=== PATIENT | female | born 2000 | race Caucasian/White ===

== ENCOUNTER 2019-05-14 07:19 | Emergency (ER) | payer OTHER ==
[~2019-05-14] VITALS: Ht 157.5 cm; Wt 71.6 kg
[2019-05-14 07:22] VITALS: BP 113/71
[2019-05-14 07:53] LABS: BASOPHILS # (AUTO) 0.01 x10^3/uL (0-0.3); BASOPHILS % (AUTO) 0 % (0-1); EOSINOPHILS % (AUTO) 4 % (1-7); LYMPHOCYTES # (AUTO) 1.92 x10^3/uL (1-6.1); LYMPHOCYTES % (AUTO) 28 % (22-44); MD NO; MEAN CORPUSCULAR HGB CONC 31.8 g/dL (32.4-35.8); MEAN CORPUSCULAR VOLUME 75.4 fL (80-100); MEAN PLATELET VOLUME 9.7 fL (7.4-10.4); MONOCYTES # (AUTO) 0.52 x10^3/uL (0-1.4); MONOCYTES % (AUTO) 8 % (2-9); NEUTROPHILS % (AUTO) 60 % (42-75); PLATELET COUNT 267 x10^3/uL (130-400); RED BLOOD COUNT 5.03 x10^6/uL (3.82-5.3); RED CELL DISTRIBUTION WIDTH 15.4 % (9.6-15.2)
[2019-05-14] MEDS ORDERED: PHENAZOPYRIDINE 200 MG TABLET PO ONE (08:00)
[2019-05-14 08:02] LABS: CULTURE INDICATED? YES; MICROSCOPIC AUTO
[2019-05-14 08:04] LABS: ALBUMIN 3.9 g/dL (3.4-5.0); ANION GAP 12 mmol/L (5-15); CALCIUM 9.6 mg/dL (8.5-10.1); CHLORIDE 109 mmol/L (98-107); CREATININE 0.65 mg/dL (0.55-1.02)
[2019-05-14] MEDS ORDERED: AZITHROMYCIN 500 MG TABLET ONE (08:29)
[2019-05-14] MEDS ORDERED: CEFTRIAXONE 250 MG ONE (08:29)
[2019-05-14] MEDS ORDERED: CEFTRIAXONE 250 MG IM ONE (08:30)
[2019-05-14] MEDS ORDERED: AZITHROMYCIN 500 MG TABLET PO ONE (08:30)
[2019-05-14] MEDS ORDERED: PHENAZOPYRIDINE 200 MG TABLET ONE (08:56)
[2019-05-14 08:58] LABS: CLUE CELLS PRESENT (NONE SEEN); WET PREP WBCS FEW (FEW)
--- NOTE | 2019-05-14 09:43 | NUR ---
BREAK RN: ASSUMED CARE FOR D/C ONLY Patient/Caregiver given discharge instructions and they have confirmed that they understand the instructions. Patient ambulatory with steady gait.
== END 2019-05-14 09:45 | disposition home or self-care (01) ==
LOC: ED 09:02
DX: N30.00 Acute cystitis without hematuria (principal); N76.0 Acute vaginitis; B96.89 Other specified bacterial agents as the cause of diseases classified elsewhere
CPT/HCPCS: 36415; 80048; 81001; 82040; 84703; 85025; 87086; 87147; 87210; 87491; 87591; 87808; 96372; 99283; J0696

== ENCOUNTER 2019-06-23 09:46 | Emergency (ER) | payer MEDICAID, OTHER ==
[~2019-06-23] VITALS: Ht 157.5 cm; Wt 69.4 kg
[2019-06-23 09:53] VITALS: BP 92/55
--- NOTE | 2019-06-23 10:05 | NUR ---
PT HER WITH C/O LOWER BACK PAIN ON BOTH SIDES, LOWER ABDOMINAL CRAMPING/PAIN, AND OCCASSIONAL NAUSEA WHEN EATING BUT NO VOMITTING. PT STATES HAS NOT HAD A MENSTURAL PERIOD IN 3 MONTHS. PT HERE WITH MOM AND STATES SHE WAS PREVIOUSLY SEEN AND TREATED FOR CHLAMYDIA AND GHONNOREA.
--- NOTE | 2019-06-23 10:41 | NUR ---
[facility] COLLECTED LABELED, AND SENT.
--- NOTE | 2019-06-23 10:43 | NUR ---
FOOT PIECE ASSEMBLER NOTIFIED THAT PT WILL NEED A CORE ROOM, PT AWARE.
--- NOTE | 2019-06-23 10:44 | NUR ---
LAB AT BEDSIDE FOR LAB DRAW.
--- NOTE | 2019-06-23 10:51 | NUR ---
PT TO US.
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
[2019-06-23 11:10] LABS: BASOPHILS # (AUTO) 0.01 x10^3/uL (0-0.3); BASOPHILS % (AUTO) 0 % (0-1); EOSINOPHILS # (AUTO) 0.13 x10^3/uL (0-0.8); EOSINOPHILS % (AUTO) 2 % (1-7); LYMPHOCYTES # (AUTO) 1.05 x10^3/uL (1-6.1); LYMPHOCYTES % (AUTO) 17 % (22-44); MD NO; MEAN CORPUSCULAR HEMOGLOBIN 24.6 pg (27.0-34.8); MEAN CORPUSCULAR HGB CONC 31.9 g/dL (32.4-35.8); MEAN CORPUSCULAR VOLUME 77.2 fL (80-100); MEAN PLATELET VOLUME 10.3 fL (7.4-10.4); MONOCYTES # (AUTO) 0.48 x10^3/uL (0-1.4); MONOCYTES % (AUTO) 8 % (2-9); NEUTROPHILS # (AUTO) 4.49 x10^3/uL (1.8-8.0); NEUTROPHILS % (AUTO) 73 % (42-75); PLATELET COUNT 206 x10^3/uL (130-400); RED BLOOD COUNT 5.05 x10^6/uL (3.82-5.3); RED CELL DISTRIBUTION WIDTH 17.3 % (9.6-15.2)
[2019-06-23 11:12] LABS: ALANINE AMINOTRANSFERASE 15 U/L (12-78); ALBUMIN 3.8 g/dL (3.4-5.0); ANION GAP 6 mmol/L (5-15); CALCIUM 8.9 mg/dL (8.5-10.1); CHLORIDE 109 mmol/L (98-107)
[2019-06-23 11:14] LABS: MICROSCOPIC NOT IND
[2019-06-23 11:17] LABS: CULTURE INDICATED? NO
[2019-06-23 11:19] LABS: ALKALINE PHOSPHATASE 59 U/L (45-117); BILIRUBIN,TOTAL 0.3 mg/dL (0.2-1.0); TOTAL PROTEIN 7.1 g/dL (6.4-8.2)
--- NOTE | 2019-06-23 11:23 | NUR ---
Pt returned from [facility] emergency department. Dressed in gown. Awaiting pelvic at this time, denies any further needs or concerns.
[2019-06-23 11:43] LABS: CLUE CELLS PRESENT (NONE SEEN); WET PREP WBCS FEW (FEW)
[2019-06-23] MEDS ORDERED: CEFTRIAXONE 250 MG ONE (12:54)
[2019-06-23] MEDS ORDERED: AZITHROMYCIN 500 MG TABLET ONE (12:54)
[2019-06-23] MEDS ORDERED: AZITHROMYCIN 500 MG TABLET PO ONE (13:00)
[2019-06-23] MEDS ORDERED: CEFTRIAXONE 250 MG IM ONE (13:00)
--- NOTE | 2019-06-23 13:45 | NUR ---
Patient given discharge instructions and Rx, they have confirmed that they understand the instructions. Patient ambulatory with steady gait.
== END 2019-06-23 13:46 | disposition home or self-care (01) ==
LOC: ED 12:15
DX: O23.591 Infection of other part of genital tract in pregnancy, first trimester (principal); B96.89 Other specified bacterial agents as the cause of diseases classified elsewhere; M54.5 Low back pain; Z3A.00 Weeks of gestation of pregnancy not specified
CPT/HCPCS: 36415; 76830; 80053; 81003; 83690; 84702; 85025; 87210; 87491; 87591; 87808; 96372; 99284; J0696; 84703

== ENCOUNTER 2020-05-31 12:33 | Emergency (ER) | payer MEDICAID ==
[~2020-05-31] VITALS: Ht 157.5 cm; Wt 73.4 kg
[2020-05-31 13:47] LABS: BASOPHILS % (AUTO) 0 % (0-1); EOSINOPHILS % (AUTO) 5 % (1-7); LYMPHOCYTES % (AUTO) 25 % (22-44); MEAN CORPUSCULAR HEMOGLOBIN 22.6 pg (27.0-34.8); MEAN CORPUSCULAR HGB CONC 31.5 g/dL (32.4-35.8); MEAN PLATELET VOLUME 8.6 fL (7.4-10.4); MONOCYTES % (AUTO) 9 % (2-9); NEUTROPHILS % (AUTO) 61 % (42-75); PLATELET COUNT 297 x10^3/uL (130-400); RED BLOOD COUNT 5.54 x10^6/uL (3.82-5.3); RED CELL DISTRIBUTION WIDTH 15.5 % (9.6-15.2)
[2020-05-31 13:54] LABS: MD NO
[2020-05-31 13:57] LABS: ALANINE AMINOTRANSFERASE 19 U/L (12-78); ANION GAP 4 mmol/L (5-15); CALCIUM 9.1 mg/dL (8.5-10.1); CHLORIDE 110 mmol/L (98-107); CREATININE 0.78 mg/dL (0.55-1.02)
[2020-05-31 14:02] LABS: ALKALINE PHOSPHATASE 96 U/L (45-117); BILIRUBIN,TOTAL 0.3 mg/dL (0.2-1.0); TOTAL PROTEIN 7.7 g/dL (6.4-8.2)
[2020-05-31 15:24] LABS: MICROSCOPIC AUTO
--- NOTE | 2020-05-31 15:44 | NUR ---
MARKETING PRODUCTION COORDINATOR: PT TO ROOM FROM LOBBY
[2020-05-31 16:27] VITALS: BP 106/67
== END 2020-05-31 16:30 | disposition home or self-care (01) ==
LOC: ED 16:10
DX: B34.9 Viral infection, unspecified (principal); Z20.828 Contact with and (suspected) exposure to other viral communicable diseases; N30.00 Acute cystitis without hematuria
CPT/HCPCS: 36415; 71045; 80053; 81001; 83690; 84703; 85025; 87086; 87635; 99284

== ENCOUNTER 2020-07-20 13:35 | Emergency (ER) | payer MEDICAID ==
[~2020-07-20] VITALS: Ht 157.5 cm; Wt 76.0 kg
[2020-07-20 13:46] VITALS: BP 124/34
== END 2020-07-20 15:34 | disposition home or self-care (01) ==
LOC: ED 15:00
DX: K08.89 Other specified disorders of teeth and supporting structures (principal); Z90.89 Acquired absence of other organs
CPT/HCPCS: 99283

== ENCOUNTER 2020-10-05 18:32 | Emergency (ER) | payer MEDICAID ==
[~2020-10-05] VITALS: Ht 157.5 cm; Wt 75.8 kg
--- NOTE | 2020-10-05 19:15 | NUR ---
COMMUTER PILOT: PT. TO ROOM FROM LOBBY AT THIS TIME.
[2020-10-05 19:45] LABS: CLUE CELLS NONE SEEN (NONE SEEN); WET PREP WBCS NONE SEEN (FEW)
--- NOTE | 2020-10-05 19:48 | NUR ---
PELVIC EXAM DONE BY ERP, PT TOLERATED WELL. UA SENT TO LAB. WATER, JUICE AND CRACKERS PROVIDED TO PT. PT UNDERSTANDS POC.
[2020-10-05 19:59] LABS: HCG UR SG 1.023 (1.003-1.030)
[2020-10-05] MEDS ORDERED: CEFTRIAXONE 250 MG IM ONE (20:00)
[2020-10-05 20:03] LABS: MICROSCOPIC INDICATED
[2020-10-05 20:49] VITALS: BP 121/63
[2020-10-05] MEDS ORDERED: CEFTRIAXONE 250 MG ONE (20:55)
[2020-10-05] MEDS ORDERED: LIDOCAINE-MPF 1%, 5ML ONE (20:56)
--- NOTE | 2020-10-05 21:07 | NUR ---
PT MEDICATED PER ORDERS. D/C INSTRUCTIONS, MEDS & F/U APPT RV'WD WITH PT, SHE VERBALIZES UNDERSTANDING. RX GIVEN X2. PT AMBULATED OUT OF ED WITHOUT DIFFICULTY.
== END 2020-10-05 21:08 | disposition home or self-care (01) ==
LOC: ED 21:00
DX: A74.9 Chlamydial infection, unspecified (principal); L01.01 Non-bullous impetigo; N89.8 Other specified noninflammatory disorders of vagina; R30.0 Dysuria; Z90.89 Acquired absence of other organs
CPT/HCPCS: 81001; 81025; 87086; 87210; 87491; 87591; 87808; 96372; 99284; J0696

== ENCOUNTER 2020-11-20 23:04 | Emergency (ER) | payer MEDICAID ==
[~2020-11-20] VITALS: Ht 157.5 cm; Wt 72.8 kg
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
--- NOTE | 2020-11-20 23:40 | NUR ---
UPON NALLELY [place] PERFORMING EXAM PT MENTIONS BURNING ON URINATION, SLIGHT VAGINAL BLEEDING AND SOME VAGINAL DISCOMFORT. WCTM.
[2020-11-21] MEDS ORDERED: CEFTRIAXONE 1,000 MG IM ONE
[2020-11-21] MEDS ORDERED: AZITHROMYCIN 500 MG TABLET PO ONE
[2020-11-21 00:52] LABS: HCG UR SG 1.033 (1.003-1.030); MICROSCOPIC INDICATED
[2020-11-21] MEDS ORDERED: LIDOCAINE-MPF 1%, 2ML ONE (00:52)
[2020-11-21] MEDS ORDERED: CEFTRIAXONE 1,000 MG ONE (00:52)
[2020-11-21] MEDS ORDERED: AZITHROMYCIN 500 MG TABLET ONE (00:52)
--- NOTE | 2020-11-21 01:19 | NUR ---
RENA AT BS SCHEDULING SART EXAM AND RECEIVING REPORT. PT MEDICATED PER MAR, NAD, VSS. WCTM PROVIDED SANDWICH AND ORANGE JUICE FOR COMFORT.
[2020-11-21 01:26] VITALS: BP 110/64
--- NOTE | 2020-11-21 01:27 | NUR ---
Patient given discharge instructions and they have confirmed that they understand the instructions. Patient ambulatory with steady gait. NAD, DENIES ADDITIONAL QUESTIONS OR NEEDS AT THIS TIME. VSS UPON DC.
== END 2020-11-21 02:00 | disposition home or self-care (01) ==
LOC: ED 23:25
DX: T76.21XA Adult sexual abuse, suspected, initial encounter (principal); N30.00 Acute cystitis without hematuria; R31.9 Hematuria, unspecified; R30.0 Dysuria; R10.9 Unspecified abdominal pain; F17.200 Nicotine dependence, unspecified, uncomplicated
CPT/HCPCS: 81001; 81025; 87086; 87491; 87591; 96372; 99283; J0696